=== PATIENT | female | born 1935 | race Caucasian/White ===

== ENCOUNTER 2018-06-29 11:02 | Outpatient (RCR) | payer MEDICARE ==
[~2018-06-29 11:02] MED LIST: ADULT ASPIRIN E81 MG PO; CLOPIDOGREL75 MG PO; DITROPAN XL5 MG PO; MULTI VITAMIN1 TAB PO; RESTASIS0.05 % OP; TOPROL XL25 MG PO; VIBERZI75 MG PO; ZOCOR20 M1 PO; [UNRECOGNIZED DRUG - OTHER]
== END 2018-06-29 13:25 ==
LOC: OPWC 11:02
PROVIDERS: ATTEND Surgery
DX: I87.312 Chronic venous hypertension (idiopathic) with ulcer of left lower extremity (principal); E66.9 Obesity, unspecified; L97.921 Non-pressure chronic ulcer of unspecified part of left lower leg limited to breakdown of skin; L03.116 Cellulitis of left lower limb
CPT/HCPCS: A6196; A6210; A6454

== ENCOUNTER → 2018-08-11 | Outpatient (REF) | payer MEDICARE | END | disposition home or self-care (01) | LOC: LABSPEC 17:14 | PROVIDERS: ATTEND Surgery | DX: L03.116 Cellulitis of left lower limb (principal); L97.921 Non-pressure chronic ulcer of unspecified part of left lower leg limited to breakdown of skin; B95.61 Methicillin susceptible Staphylococcus aureus infection as the cause of diseases classified elsewhere; I83.023 Varicose veins of left lower extremity with ulcer of ankle; L97.222 Non-pressure chronic ulcer of left calf with fat layer exposed; I87.2 Venous insufficiency (chronic) (peripheral); I87.312 Chronic venous hypertension (idiopathic) with ulcer of left lower extremity; E66.9 Obesity, unspecified | CPT/HCPCS: A6210 ==

== ENCOUNTER 2023-06-12 16:40 | Observation (INO) | payer MEDICARE ==
[~2023-06-12] VITALS: Ht 152.4 cm; Wt 89.8 kg
[2023-06-12] VITALS (9 sets, daily range): BP systolic 140–168; BP diastolic 66–85
[2023-06-12] MEDS ORDERED: COENZYME Q-10100 MG PO (17:22)
[2023-06-12] MEDS ORDERED: LEXAPRO10 MG PO (17:23)
[2023-06-12] MEDS ORDERED: LASIX 40 MG TAB40 MG PO (17:24)
[2023-06-12] MEDS ORDERED: LATANOPROST0.005 % OU (17:25)
[2023-06-12] MEDS ORDERED: POTASSIUM CHLO10 ME1 PO (17:28)
[2023-06-12] MEDS ORDERED: PRESERVISION AREDS 2 (17:29)
[2023-06-12] MEDS ORDERED: DETROL LA4 MG PO (17:29)
[2023-06-12] MEDS ORDERED: DIOVAN160 MG PO (17:30)
[2023-06-12 17:36] LABS: BASO% 0.1 % (0-3); EOS% 0.1 % (0-8); HEMATOCRIT 40.7 % (37.0-47.0); HEMOGLOBIN 12.7 g/dl (12.0-16.0); IMMATURE GRANULOCYTES 0.2 % (0.0-5.0); LYMPH% 3.4 % (15-41); MEAN CELL VOLUME 98.5 fL CALC (80.0-100.0); MEAN CORPUSCULAR HGB 30.8 pG CALC (26.0-32.0); MEAN CORPUSCULAR HGB CONC 31.2 g/dL CAL (32.0-36.0); MONO% 3.6 % (2-13); NEUT# 14.34 thou/uL (2.00-7.15); NEUT% 92.6 % (42-76); RED BLOOD COUNT 4.13 mill/uL (4.20-5.60); RED CELL DISTRI WIDTH 13.6 % (11.5-15.5)
[2023-06-12 17:46] LABS: ALBUMIN 3.9 g/dL (3.2-5.0); BUN 22 mg/dL (8-23); BUN/CREATININE RATIO 43 (12-20 (CALC)); CHLORIDE 105 mmol/l (95-108); CREATININE 0.5 mg/dL (0.5-1.0); GFR FOR AFR.AMER. > 60 ML/MIN (>=60 (CALC)); GFR OTHER RACES > 60 ML/MIN (>=60 (CALC)); LIPASE 138 u/l (23-300); POTASSIUM 4.4 mmol/l (3.5-5.1); SODIUM 135 mmol/l (137-146); TOTAL PROTEIN 6.3 g/dL (6.3-8.2)
[2023-06-12 17:56] LABS: ANION GAP 11 (6-22 (CALC)); CARBON DIOXIDE 23 mmol/l (22-30)
[2023-06-12 17:57] LABS: ALKALINE PHOSPHATASE 452 u/l (38-126); BILIRUBIN, TOTAL 1.3 mg/dL (0.02-1.3); SGOT/AST 1033 u/l (9-36)
[2023-06-13] VITALS (26 sets, daily range): BP systolic 100–161; BP diastolic 51–125
[2023-06-13 06:09] LABS: BASO% 0.4 % (0-3); HEMATOCRIT 32.5 % (37.0-47.0); HEMOGLOBIN 10.5 g/dl (12.0-16.0); IMMATURE GRANULOCYTES 0.3 % (0.0-5.0); LYMPH% 18.7 % (15-41); MEAN CELL VOLUME 97.6 fL CALC (80.0-100.0); MEAN CORPUSCULAR HGB 31.5 pG CALC (26.0-32.0); MEAN CORPUSCULAR HGB CONC 32.3 g/dL CAL (32.0-36.0); MONO% 6.7 % (2-13); NEUT# 4.74 thou/uL (2.00-7.15); NEUT% 70.9 % (42-76); RED BLOOD COUNT 3.33 mill/uL (4.20-5.60); RED CELL DISTRI WIDTH 13.6 % (11.5-15.5)
[2023-06-13 06:27] LABS: ALKALINE PHOSPHATASE 300 u/l (38-126); BUN 17 mg/dL (8-23); BUN/CREATININE RATIO 35 (12-20 (CALC)); CHLORIDE 107 mmol/l (95-108); CREATININE 0.5 mg/dL (0.5-1.0); GFR FOR AFR.AMER. > 60 ML/MIN (>=60 (CALC)); GFR OTHER RACES > 60 ML/MIN (>=60 (CALC)); POTASSIUM 3.7 mmol/l (3.5-5.1); SGOT/AST 298 u/l (9-36); SODIUM 137 mmol/l (137-146); TOTAL PROTEIN 5.1 g/dL (6.3-8.2)
[2023-06-13 06:45] LABS: ALBUMIN 2.9 g/dL (3.2-5.0); ANION GAP 5 (6-22 (CALC)); BILIRUBIN, TOTAL 0.5 mg/dL (0.02-1.3); CARBON DIOXIDE 29 mmol/l (22-30)
[2023-06-13 10:58] LABS: URINE BILIRUBIN - DIPSTICK Negative (NEGATIVE); URINE BLOOD DIPSTICK Negative (NEGATIVE); URINE GLUCOSE - DIPSTICK Negative (NEGATIVE); URINE KETONE Negative (NEGATIVE); URINE LEUK ESTERASE Negative (NEGATIVE); URINE NITRITE - DIPSTICK Negative (Negative); URINE PH 5.5 (4.5-8.0); URINE PROTEIN - DIPSTICK Negative (NEG-TRACE); URINE SPECIFIC GRAVITY 1.015; URINE UROBILINOGEN - DIPSTICK 0.2 E.U./dL (0.2)
[2023-06-13 10:59] LABS: URINE COLOR Yellow
[2023-06-14] VITALS (13 sets, daily range): BP systolic 118–185; BP diastolic 37–118
[2023-06-14 06:58] LABS: BASO% 0.8 % (0-3); EOS% 5.1 % (0-8); HEMATOCRIT 35.5 % (37.0-47.0); HEMOGLOBIN 11.1 g/dl (12.0-16.0); IMMATURE GRANULOCYTES 0.2 % (0.0-5.0); LYMPH% 22.3 % (15-41); MEAN CELL VOLUME 98.6 fL CALC (80.0-100.0); MEAN CORPUSCULAR HGB 30.8 pG CALC (26.0-32.0); MEAN CORPUSCULAR HGB CONC 31.3 g/dL CAL (32.0-36.0); MONO% 8.1 % (2-13); NEUT# 3.39 thou/uL (2.00-7.15); NEUT% 63.5 % (42-76); RED BLOOD COUNT 3.6 mill/uL (4.20-5.60)
[2023-06-14 07:05] LABS: ALBUMIN 3.2 g/dL (3.2-5.0); ALKALINE PHOSPHATASE 241 u/l (38-126); BILIRUBIN, TOTAL 0.5 mg/dL (0.02-1.3); BUN 10 mg/dL (8-23); BUN/CREATININE RATIO 22 (12-20 (CALC)); CARBON DIOXIDE 28 mmol/l (22-30); CHLORIDE 108 mmol/l (95-108); CREATININE 0.4 mg/dL (0.5-1.0); GFR FOR AFR.AMER. > 60 ML/MIN (>=60 (CALC)); GFR OTHER RACES > 60 ML/MIN (>=60 (CALC)); SGOT/AST 128 u/l (9-36); SODIUM 137 mmol/l (137-146); TOTAL PROTEIN 5.8 g/dL (6.3-8.2)
[2023-06-14 07:06] LABS: ANION GAP 6 (6-22 (CALC)); POTASSIUM 4.9 mmol/l (3.5-5.1)
[2023-06-14] MEDS ORDERED: PROTONIX40 M2 PO (14:36)
== END 2023-06-14 16:10 | disposition home or self-care (01) ==
LOC: ED 16:40 → ED-I 06-13 00:35 → ED 06-13 00:49 → ICU 06-13 00:50
PROVIDERS: Family Medicine; Student in an Organized Health Care Education/Training Program; ADMIT Internal Medicine; ATTEND Internal Medicine
DX: R10.33 Periumbilical pain (principal); R11.0 Nausea; D72.829 Elevated white blood cell count, unspecified; I10 Essential (primary) hypertension; I25.10 Atherosclerotic heart disease of native coronary artery without angina pectoris; F41.9 Anxiety disorder, unspecified; E66.9 Obesity, unspecified; I25.2 Old myocardial infarction; Z95.5 Presence of coronary angioplasty implant and graft; Z68.38 Body mass index [BMI] 38.0-38.9, adult; Z98.84 Bariatric surgery status
CPT/HCPCS: J1650; S0164